=== PATIENT | female | born 1955 | race Caucasian/White ===

== ENCOUNTER → 2016-12-28 | Outpatient (CLI) | payer BC, OTHER ==
--- NOTE | ~2016-12-28 | EKG ---
[place] [address] [facility] [place] [address] ELECTROCARDIOGRAM REPORT Name: MISSY GÓMEZMary Ann Acuña Room #: [facility]#: [id number] Admission: 12/28/16 Attend Phys: Gabe Smith MD Discharge: Date of : 53 Report #: [id number] THIS REPORT FOR: //name// [facility] Test Date: 2016-12-28 Test Time: 16:20:04 Pat Name: JACK GÓMEZ Department: Room: Gender: F Robotics Technologist: Reanna BOYKIN : 1955 Requested By: Gabe Smith Order Number: [id number] MD: Thomas Gustafson Measurements Intervals [place] Rate: 93 P: 31 MA: 143 QRS: 8 QRSD: 87 T: 31 QT: 358 QTc: 446 Interpretive Statements Sinus rhythm Poor R wave progression No previous ECG available for comparison Electronically Signed On 12-29-2016 8:32:09 CDT by Thomas Gustafson [email or web address] <ELECTRONICALLY SIGNED> By: Thomas Gustafson MD, [facility] 12/29/16 0832 1620 1620 Thomas Gustafson MD, FACC /EPI
== END ==
LOC: CV 15:48
DX: Z01.818 Encounter for other preprocedural examination (principal)

== ENCOUNTER 2017-01-13 05:41 | Day surgery (SDC) | payer BC, OTHER ==
[2017-01-13] VITALS (8 sets, daily range): BP systolic 125–148; BP diastolic 56–78
[~2017-01-13] VITALS: Ht 162.6 cm; Wt 100.7 kg
--- NOTE | ~2017-01-13 | O ---
[facility] [place] [address] OPERATIVE REPORT Name: JACK GÓMEZ Room #: 540-P [facility].#: [id number] Admission: 01/13/17 Attend Phys: Gabe Smith MD Discharge: Date of : 53 Report #: [id number] THIS REPORT FOR: //name// CC: Reynaldo Smith DATE OF SERVICE: 01/13/2017 SURGEON: Gabe Smith MD. PREOPERATIVE DIAGNOSES: 1. Left true vocal cord paralysis, idiopathic. 2. Dysphagia. 3. Chronic hoarseness. POSTOPERATIVE DIAGNOSES: 1. Left true vocal cord paralysis, idiopathic. 2. Dysphagia. 3. Chronic hoarseness. OPERATION PERFORMED: 1. Left true vocal cord medialization. 2. Rigid laryngoscopy. 3. Fat graft harvest abdomen via liposuction. INDICATIONS: The patient is a 61-year-old female with a left true vocal cord paralysis and despite aggressive evaluation, no specific etiology has been found and this was felt to be idiopathic. The patient has been watched for several minutes for spontaneous recovery without success. She is symptomatic with this with hoarseness, shortness of breath and dysphagia. She has not had aspiration pneumonia. We discussed options of medialization laryngoplasty to improve the function of the paralyzed cord from a paramedian position to a median position. We discussed doing a temporary procedure such as autologous fat graft injection so as not to preclude a permanent solution of Silastic laryngoplasty in the future if this failed to spontaneously improve. The patient is amenable to this approach. DESCRIPTION OF PROCEDURE: The patient was brought to the operating room and placed supine on the operating table. After adequate general anesthesia was achieved via endotracheal intubation, she was turned 90 degrees. The abdomen was prepped with Betadine. She was draped in a sterile fashion. A small infraumbilical incision was made and using a liposuction cannula, 3 mm cannula, liposuction was undertaken in the infraumbilical fat. This was collected in a Luken trap to keep it sterile. About 3 mL of fat were collected. Once [facility] [address] [place] [address] OPERATIVE REPORT Name: JACK GÓMEZ Arianne Room #: 540-P [facility]..#: [id number] Admission: 01/13/17 Attend Phys: Gabe Smith MD Discharge: Date of : 53 Report #: [id number] this was accomplished, the wound was examined. There was really no bleeding. The infraumbilical incision was closed with interrupted 4-0 Vicryl and a 5-0 subcuticular Prolene. Mastisol and Steri-Strips were applied with an OpSite for dressing. Attention was then turned to the fat. This was removed from the Luken suction and it was poured into a strainer overlying a basin. The fat was then washed with a PhysioSol solution containing insulin. We utilized with Lactated Ringer with 100 units of regular insulin and 100 mL of Lactated Ringer to wash and bathe the fat. Once a wash of about 100 mL was done. Once this was done, the fat was collected into a 3 mL syringe and then transferred to a Stasney syringe for injection. This was then attached to a [place] fat injection laryngeal 15 gauge needle, 22 cm long. The fat was then advanced into the needle. At this point, attention was turned to the head. A head drape was placed. The patient was placed into suspension with a video laryngoscope. A [facility] video laryng[facility]. Once this was then positioned, the patient was suspended from the [place] stand. Video prints were taken preoperatively using the syringe, then with the fat graft. Injection was made in 3 areas of the left vocal cord, mid vocal cord with 1 click of the syringe inferiorly at the muscular process of the arytenoid with a click and a half and then more inferiorly just opposite the arytenoid with another click of the injection. A total of about 0.75-1.0 mL was injected. Once this was completed, hemostasis was assured from the needle pricks with 1:100,000 epinephrine with a half by half cottonoid. The video print was then taken at the end of the procedure. The patient was then returned to anesthesia, awakened without difficulty and returned to recovery in good condition. Sponge and needle counts were correct. There were no complications. Blood loss was less than 20 mL. She will be watched until awake and stable. Presuming she does well, she may be discharged to home with plans to follow with me in 1 week. Written and verbal discharge instructions and emergency precautions have been given to her . DISCHARGE MEDICATIONS: Include amoxicillin 500 mg 1 t.i.d. for 10 days, hydrocodone/acetaminophen 7.5/325 one to two q. 4-6 hours p.r.n., Phenergan suppository 25 mg 1 per rectum q. 4-6 hours p.r.n. and Medrol Dosepak. She is instructed on light activity and a soft diet. <ELECTRONICALLY SIGNED> By: Gabe Smith MD 01/13/17 1715 1335 1708 Gabe Smith MD /nt
[~2017-01-13 05:41] MED LIST: ACETAMINOPHEN-1 EAC1 PO; ALBUTEROL2.5 MG/31 INH; ASPIR 8181 MG PO; AZELASTINE137 MCG/0. INH; BREO ELLIPTA 11 EACH IH; CALCIUM 500 +1 EAC5 PO; CENTRUM SILVER1 EAC4 PO; COLON HEALTH PO; CRANBERRY500 M1 PO; DIOVAN320 MG PO; GLYCOPYRROLATE 11 MG PO; MELATONIN3 MG PO; NABUMETONE 750750 M1 PO; NASONEX17 GM NASAL; PANTOPRAZOLE SO40 M1 PO; PROMS25 WY RECTAL; SERTRALINE HCL100 MG PO; VENTOLIN HFA 1818 GM INH; VYTORIN 10-201 EACH PO; WELLBUTRIN XL300 MG PO; XANAX1 MG PO
[2017-01-14 02:56] VITALS: BP 129/59
[2017-01-14 07:30] VITALS: BP 153/60
[2017-01-14 11:21] VITALS: BP 153/60
== END 2017-01-14 12:14 | disposition home or self-care (01) ==
LOC: OR 05:41 → TBA 05:41 → OR 09:34 → 5S 15:09 → OR 01-14 12:14
DX: R13.19 Other dysphagia (principal); J38.01 Paralysis of vocal cords and larynx, unilateral; R49.0 Dysphonia; F41.8 Other specified anxiety disorders; F32.89 Other specified depressive episodes; G47.33 Obstructive sleep apnea (adult) (pediatric); I10 Essential (primary) hypertension; E78.00 Pure hypercholesterolemia, unspecified; K21.9 Gastro-esophageal reflux disease without esophagitis; M96.1 Postlaminectomy syndrome, not elsewhere classified; J45.909 Unspecified asthma, uncomplicated; Z90.710 Acquired absence of both cervix and uterus; Z87.891 Personal history of nicotine dependence; Z96.653 Presence of artificial knee joint, bilateral
CPT/HCPCS: 10785; 50010; 50101; 50386; 50398; 62110; 62900; 70005